=== PATIENT | female | born 1960 | race Caucasian/White ===

== ENCOUNTER 2017-03-27 23:58 | Inpatient (IN) | payer OTHER ==
[2017-03-28] MEDS ORDERED: cefTRIAXone 1 GM in Premix Bag 1 BAG IV ONE (00:05)
[2017-03-28] MEDS ORDERED: Sodium Chloride 0.9% 1,000 ML IV SCH ×2 (00:15→02:00)
[2017-03-28] MEDS ORDERED: Ondansetron 4 MG/2 ML SDV IVPUSH ONE (00:16)
--- NOTE | 2017-03-28 00:36 | EDM.PDOC ---
ED HPI GENERAL MEDICAL PROBLEM - General Chief Complaint: Fever Stated Complaint: PT HAS FEVER Time Seen by Provider: 03/28/17 00:00 - History of Present Illness INITIAL COMMENTS - FREE TEXT/NARRATIVE: HISTORY AND PHYSICAL: History of present illness: Patient is a 56-year-old white female history of metastatic colon cancer who presents with a concern of fever, increasing abdominal /flank pain .fever nausea and vomiting she has a right nephrostomy tube a left colostomy. Review of systems: As per history of present illness and below otherwise all systems reviewed and negative. Past medical history: As per history of present illness and as reviewed below otherwise noncontributory. Surgical history: As per history of present illness and as reviewed below otherwise noncontributory. Social history: No reported history of drug or alcohol abuse. Family history: As per history of present illness and as reviewed below otherwise noncontributory. Physical exam: HEENT: Atraumatic, normocephalic, pupils reactive, negative for conjunctival pallor or scleral icterus, mucous membranes dry, throat clear, neck supple, nontender, trachea midline. Lungs: Clear to auscultation, breath sounds equal bilaterally, chest nontender. Heart: S1S2, regular, tachycardic negative for clicks, rubs, or JVD. Abdomen: Soft, nondistended, nonlocalized tenderness nephrostomy tube noted on the right colostomy on the left noted. Negative for masses or hepatosplenomegaly. Negative for costovertebral tenderness. Pelvis: Stable nontender. Genitourinary: Deferred. Rectal: Deferred. Extremities: Atraumatic, negative for cords or calf pain. Neurovascular unremarkable. Neuro: Awake, alert, oriented. Cranial nerves II through XII unremarkable. Cerebellum unremarkable. Motor and sensory unremarkable throughout. Exam nonfocal. Diagnostics: CBC CMP UA urine culture blood culture x2 lactic acid chest x-ray EKG Therapeutics: Normal saline 1 L bolus Rocephin 1 g IV Dilaudid 1 mg IV Zofran 4 mg IV Impression: #1 fever #2 history of metastatic cancer #3 history of right nephrostomy tube # 4 dehydration Definitive disposition and diagnosis as appropriate pending reevaluation and review of above. lower back Pain Score (Numeric/FACES): 7 - Related Data Allergies Allergy/AdvReac Type Severity Reaction Status Date / Time ciprofloxacin [From Cipro] Allergy Rash Verified 03/28/17 00:06 fentanyl Allergy Difficulty Verified 03/28/17 00:06 Breathing Home Meds: Home Meds oxyCODONE HCl/Acetaminophen [Percocet 5-325 mg Tablet] 1 tab PO ASDIRECTED PRN 08/14/16 [History] Past Medical History HEENT History: Reports: Impaired Vision Other HEENT History: wears glasses / contacts Cardiovascular History: Reports: None Respiratory History: Reports: None Gastrointestinal History: Reports: None Other Gastrointestinal History: had ulcerative colitis as a child, not currently Genitourinary History: Reports: UTI, Recurrent [employer]ER History: Reports: Musculoskeletal History: Reports: None Neurological History: Reports: None Other Neuro History: does not want a scopalamine patch at this time - order for patch prn Psychiatric History: Reports: None Endocrine/Metabolic History: Reports: None Hematologic History: Reports: Blood Transfusion(s) Other Hematologic History: as a child Immunologic History: Reports: None Oncologic (Cancer) History: Reports: Colon Dermatologic History: Reports: None Other Dermatologic History: currently has a rash from allergy to Cipro - Infectious Disease History Infectious Disease History: Reports: None - Past Surgical History Female Surgical History: Reports: Section Oncologic Surgical History: Reports: Other (See Below) Social & Family History - Family History Family Medical History: Noncontributory - Tobacco Use Smoking Status *Q: Never Smoker - Recreational Drug Use Recreational Drug Use: No Drug Use in Last 12 Months: No ED ROS GENERAL - Review of Systems Review Of Systems: ROS reveals no pertinent complaints other than HPI. ED EXAM, GENERAL - Physical Exam Exam: See Below (See dictation) Course - Vital Signs Last Recorded V/S: Last Vital Signs Temp 38.3 C H 03/28/17 00:06 Pulse 134 H 03/28/17 00:06 Resp 20 03/28/17 00:06 BP 107/64 03/28/17 00:06 Pulse Ox 96 03/28/17 00:06 - Orders/Labs/Meds Orders: Active Orders 24 hr Category Date Time Status EKG Documentation Completion [RC] STAT Care 03/28/17 00:03 Active Chest 1V Frontal [CR] Stat Exams 03/28/17 00:08 Ordered CBC WITH AUTO DIFF [HEME] Stat Lab 03/28/17 00:22 Received COMPREHENSIVE METABOLIC PN,CMP [CHEM] Stat Lab 03/28/17 00:22 Received CULTURE BLOOD [BC] Stat Lab 03/28/17 00:07 Ordered CULTURE BLOOD [BC] Stat Lab 03/28/17 00:07 Ordered CULTURE URINE [RM] Stat Lab 03/28/17 00:04 Uncollected INR,PT,PROTHROMBIN TIME [COAG] Stat Lab 03/28/17 00:22 Received LACTIC ACID,WHOLE BLOOD [BG] Stat Lab 03/28/17 00:22 Received UA W/MICROSCOPIC [URIN] Stat Lab 03/28/17 00:04 Uncollected Sodium Chloride 0.9% [Normal Saline] 1,000 ml Med 03/28/17 00:15 Active IV STAT cefTRIAXone [Rocephin in Dextrose,Iso-Osm 1 GM/50 ML] 1 Med 03/28/17 00:05 Active gm Premix Bag 1 bag IV ONETIME Blood Culture x2 Reflex Set [OM.PC] Stat Oth 03/28/17 00:04 Ordered Medication Orders Sodium Chloride (Normal Saline) 1,000 mls @ 125 mls/hr IV STAT JEZ Last Admin: 03/28/17 00:23 Dose: 125 mls/hr Ceftriaxone Sodium/Dextrose 1 (gm/ Premix) 50 mls @ 100 mls/hr IV ONETIME ONE Stop: 03/28/17 00:34 Last Admin: 03/28/17 00:26 Dose: 100 mls/hr Meds: Medications Generic Name Dose Route Start Last Admin Trade Name Freq PRN Reason Stop Dose Admin Sodium Chloride 1,000 mls @ 125 mls/hr 03/28/17 00:15 03/28/17 00:23 Normal Saline IV 125 mls/hr STAT JEZ Administration Ceftriaxone Sodium/Dextrose 1 50 mls @ 100 mls/hr 03/28/17 00:05 03/28/17 00: 26 gm/ Premix IV 03/28/17 00:34 100 mls/hr ONETIME ONE Administration Discontinued Medications Generic Name Dose Route Start Last Admin Trade Name Freq PRN Reason Stop Dose Admin Ceftriaxone Sodium/Dextrose Confirm 03/28/17 00:26 Rocephin In Dextrose,Iso-Osm 1 Gm/50 Ml Administered 03/28/17 00:27 Dose 50 mls @ as directed .ROUTE .STK-MED ONE Ondansetron HCl 4 mg 03/28/17 00:16 03/28/17 00:26 Zofran IVPUSH 03/28/17 00:17 4 mg ONETIME ONE Administration Departure - Departure Time of Disposition: 00:36 Disposition: Refer to Observation Clinical Impression: Fever, Metastatic colon cancer in female - Discharge Information Forms: ED Department Discharge - My Orders Last 24 Hours: My Active Orders 03/28/17 00:03 EKG Documentation Completion [RC] STAT 03/28/17 00:04 CULTURE URINE [RM] Stat UA W/MICROSCOPIC [URIN] Stat Blood Culture x2 Reflex Set [OM.PC] Stat 03/28/17 00:05 cefTRIAXone [Rocephin in Dextrose,Iso-Osm 1 GM/50 ML] 1 gm Premix Bag 1 bag IV ONETIME 03/28/17 00:07 CULTURE BLOOD [BC] Stat CULTURE BLOOD [BC] Stat 03/28/17 00:08 Chest 1V Frontal [CR] Stat 03/28/17 00:15 Sodium Chloride 0.9% [Normal Saline] 1,000 ml IV STAT 03/28/17 00:22 CBC WITH AUTO DIFF [HEME] Stat COMPREHENSIVE METABOLIC PN,CMP [CHEM] Stat INR,PT,PROTHROMBIN TIME [COAG] Stat LACTIC ACID,WHOLE BLOOD [BG] Stat - Assessment/Plan Last 24 Hours: My Active Orders 03/28/17 00:03 EKG Documentation Completion [RC] STAT 03/28/17 00:04 CULTURE URINE [RM] Stat UA W/MICROSCOPIC [URIN] Stat Blood Culture x2 Reflex Set [OM.PC] Stat 03/28/17 00:05 cefTRIAXone [Rocephin in Dextrose,Iso-Osm 1 GM/50 ML] 1 gm Premix Bag 1 bag IV ONETIME 03/28/17 00:07 CULTURE BLOOD [BC] Stat CULTURE BLOOD [BC] Stat 03/28/17 00:08 Chest 1V Frontal [CR] Stat 03/28/17 00:15 Sodium Chloride 0.9% [Normal Saline] 1,000 ml IV STAT 03/28/17 00:22 CBC WITH AUTO DIFF [HEME] Stat COMPREHENSIVE METABOLIC PN,CMP [CHEM] Stat INR,PT,PROTHROMBIN TIME [COAG] Stat LACTIC ACID,WHOLE BLOOD [BG] Stat
[2017-03-28] MEDS ORDERED: Temazepam 15 MG Cap PO PRN (01:56)
[2017-03-28] MEDS ORDERED: HYDROMORPHONE 4 MG PO PRN (01:57)
[2017-03-28] MEDS ORDERED: HYDROmorphone 2 MG Tab PO PRN (02:39)
[2017-03-28] MEDS: Temazepam 15 MG Cap PO PRN ×2 (03:07→22:25)
[2017-03-28] MEDS ORDERED: LORazepam 0.5 MG Tab PO SCH (06:00)
[2017-03-28] MEDS: LORazepam 0.5 MG Tab PO SCH ×4 (06:54→23:20)
[2017-03-28] MEDS: HYDROmorphone 2 MG Tab PO PRN ×4 (08:42→22:23)
[2017-03-28] MEDS: Morphine 30 MG Tab.ER PO PRN ×2 (08:44→17:36)
--- NOTE | 2017-03-28 11:10 | CR ---
EXAM DATE: 03/28/17 PATIENT'S AGE: 56 Patient: MARIBETH MONTANA Facility: [place], [place] Site . Site : 1960 Study: XRay Chest [id number] 12:43:44 AM Ordering Physician: Tiffanie Ford Final Report: INDICATION: PAIN, SOB, FEVER TECHNIQUE: Chest 1 view COMPARISON: None FINDINGS: Cardiovascular and mediastinum: Heart size and vasculature are normal in caliber and appearance. Mediastinum is within normal limits. Lungs and pleural space: No focal consolidation. No sign of pleural effusion. No pneumothorax. Bones and soft tissues: No significant findings. IMPRESSION: No acute cardiopulmonary disease. Dictated by Dany Emery MD @ 03/28/2017 12:55:57 AM Dictated by: Dany Emery MD @ 03/28/2017 00:56:01 (Electronic Signature) Report Signed by Proxy. [email or web address]
[2017-03-28] MEDS: Sodium Chloride 0.9% 1,000 ML IV SCH ×2 (13:00→20:11)
[2017-03-28] MEDS ORDERED: cefTRIAXone 1 GM in Premix Bag 1 BAG IV SCH (15:00)
[2017-03-28] MEDS ORDERED: Acetaminophen 325 MG Tab PO PRN (18:42)
[2017-03-28] MEDS ORDERED: Ondansetron 4 MG/2 ML SDV IVPUSH PRN (19:31)
[2017-03-29] MEDS ORDERED: cefTRIAXone 1 GM in Premix Bag 1 BAG IV SCH (01:00)
[2017-03-29] MEDS: Morphine 30 MG Tab.ER PO PRN (01:06)
--- NOTE | 2017-03-29 01:25 | HP ---
DATE OF : 1960 PRIMARY CARE PHYSICIAN: Kulwant PCP She is 56 years old. She is admitted to the hospital with acute urinary tract infection. HISTORY OF PRESENT PROBLEM: The patient had colon cancer surgery twice, the last one was approximately a year and a half ago at which time additional segment of the colon was resected and 3 of 34 lymph nodes were positive for malignancy. At that time, she did not want to have chemo. I saw her when she had abdominal pain. CT scan showed severe left-sided hydronephrosis and moderate right-sided hydronephrosis. That was closed by a picture most consistent with extrinsic compression of the ureters. The left kidney was beyond saving. A double-J stent was placed into the left ureter that, however, caused the patient lot of pain, so she ended up having to have a left nephrostomy tube which she still has. Complicating factors, homeopathic medications, and alternative treatment were administered; however, currently she also has a colostomy that was an emergency surgery done elsewhere. She is in with a UTI because of the presence of the nephrostomy tube which is scheduled to be changed. QUINTIN REINA /[id number]
[2017-03-29] MEDS: LORazepam 0.5 MG Tab PO SCH ×2 (05:26→12:49)
[2017-03-29] MEDS: Sodium Chloride 0.9% 1,000 ML IV SCH (09:11)
[2017-03-29] MEDS: HYDROmorphone 2 MG Tab PO PRN (12:27)
[2017-03-29 16:34] VITALS: BP 118/77
--- NOTE | 2017-03-30 01:28 | DISCH ---
DATE OF DISCHARGE: 03/29/2017 PRIMARY CARE PHYSICIAN: None PCP HOSPITAL COURSE: Niecy was admitted to the hospital for treatment of acute urinary tract infection day before yesterday. While there she received IV Rocephin and one dose of IV tobramycin. The blood culture was negative. Urine culture is still pending. History is detailed in previous notes. She does have a nephrostomy tube in the right kidney and that I suspect is the source of the fever and the infection. She has an obstructed left kidney and she underwent recent emergency colostomy for bowel obstruction. While in the hospital she did reasonably well. She has spiked temperature twice over 103. Temperature has been stable and normal over the last 16 hours. Her white blood count on admission [place] 19,800[place] [address]. Serum creatinine was 1.6. The nephrostomy tube is scheduled to be changed in the Radiology Department day after tomorrow, this coming Friday. She will receive one more dose of Rocephin tomorrow morning and another one Friday morning. She will receive a 2nd dose of tobramycin today. She will be seen in the office as needed. QUINTIN REINA /[id number]
== END 2017-03-29 18:00 | disposition home or self-care (01) | DRG 690 ==
LOC: MW.ED 23:58 → MW.MS 03-28 00:37
PROVIDERS: ADMIT Urology; ATTEND Urology
DX: N39.0 Urinary tract infection, site not specified (principal); Z85.038 Personal history of other malignant neoplasm of large intestine; Z93.6 Other artificial openings of urinary tract status; Z93.3 Colostomy status
CPT/HCPCS: 36415; 71010; 71010-26; 80053; 81001; 83605; 85025; 85610; 87040; 87086; 87088; 87186; 93005; 96365; 96375; 99285; 99285-25; A9270-GY; J0696; J2405; J3260; J7030; J7040